=== PATIENT | female | born 1990 | race Caucasian/White ===

== ENCOUNTER 2017-07-03 21:08 | Emergency (ER) | payer OTHER, MEDICAID ==
[~2017-07-03] VITALS: Ht 157.5 cm; Wt 74.8 kg
[~2017-07-03 21:08] MED LIST: AMOXICILLIN500 M1 PO; AUGMENTIN 875875 MG PO; AZO95 MG PO; BACTRIM DS TAB1 EACH PO; BENTYL 20 MG TA20 M1 PO; BENTYL20 MG PO; CARAFATE 1 GM TA1 G1; CARAFATE1 GM/10 ML PO; CIPRO500 MG PO; CIPROFLOXACIN500 M1 PO; DIFLUCAN150 M1 PO; FIORICET 50-321 EACH PO; FLEXERIL PO; FLONASE 0.05%50 MCG NASAL; FLOXIN OTI0.3 %/5 M1 OT; HYDROCODONE-AP1 EAC6 PO; KEFLEX500 MG PO; LIDOCAINE VISC100 M1 SWISH&SPIT; MACROBID 100 M100 M1 PO; NOHOMEMEDICATIONS; OMEPRAZOLE 20 M20 M1 PO; ONDANSETRON HCL4 M2 PO; PHENAZOPYRIDIN200 M2 PO; PRENATAL; PYRIDIUM200 MG PO; SPRINTEC1 EACH PO; TRAMADOL 50 MG50 MG PO; VIBRAMYCIN 100100 MG PO; WELLBUTRIN 100100 MG PO; XANAX 0.25 MG0.25 MG PO; ZOFRAN 4 MG ORAL4 MG PO; ZOFRAN ODT4 MG PO; ZOFRAN ODT4 MG SUBLING; ZOFRAN4 MG; ZPAK PO
[2017-07-03 21:36] LABS: ABSOLUTE BASOPHILS 0.1 thou/uL (0.0-0.2); ABSOLUTE EOSINOPHILS 0.1 thou/uL (0.0-0.7); ABSOLUTE LYMPHOCYTES 3.1 thou/uL (0.8-5.3); ABSOLUTE MONOCYTES 0.6 thou/uL (0.0-1.2); ABSOLUTE NEUTROPHILS 4.3 thou/uL (1.6-8.1); BASOPHILS 0.8 %; HEMATOCRIT 37.1 % (37.0-47.0); HEMOGLOBIN 12.9 gm/dL (12.0-15.0); LYMPHOCYTES 37.8 %; MCH 31.8 pg (26.0-34.0); MCHC 34.7 g/dL (28.0-37.0); MCV 91.7 fL (80.0-100.0); MONOCYTES 7.5 %; MPV 8.9 fl. (7.2-11.1); NUCLEATED RBCS 0 /100WBC; PLATELET COUNT* 216 thou/uL (150-400); POLYS 52.9 %; RBC 4.05 mil/uL (4.20-5.00); WBC 8.2 thou/uL (4.0-11.0)
[2017-07-03 21:48] LABS: ANION GAP 8 mmol/L (7-16); BUN 13 mg/dL (7-18); CALCIUM 8.9 mg/dL (8.5-10.1); CHLORIDE 103 mmol/L (98-107); CO2 29 mmol/L (21-32); CREATININE 0.7 mg/dL (0.6-1.3); GLUCOSE 88 mg/dL (70-99); POTASSIUM 3.9 mmol/L (3.5-5.1); SODIUM 140 mmol/L (136-145)
[2017-07-03 21:55] LABS: ALBUMIN 3.9 g/dL (3.4-5.0); ALKALINE PHOSPHATASE 67 U/L (46-116); LIPASE 157 U/L (73-393); MAGNESIUM 2.1 mg/dL (1.8-2.4); SGOT 18 U/L (15-37); SGPT 24 U/L (30-65); TOTAL BILIRUBIN 0.3 mg/dL (<0.1-1.0); TOTAL PROTEIN 7.2 g/dL (6.4-8.2); TROPONIN-I LEVEL <0.06 ng/mL (<0.06)
[2017-07-03] MEDS ORDERED: IBUPROFEN 800800 M1 PO (22:18)
[2017-07-03] MEDS ORDERED: NORCO 5-325 TA1 EACH PO ×2 (22:18→22:20)
[2017-07-03 22:49] VITALS: BP 122/69
--- NOTE | 2017-07-04 17:42 | EKG ---
[place] [address] ELECTROCARDIOGRAM REPORT Name: SARABJITGRAHAM MERLOSROM SEEMA Room: [facility]#: [id number] Admission: 07/03/17 Attend Phys: Discharge: 07/03/17 Date of : [birth year] Report #: [id number] THIS REPORT FOR: //name// [facility] ED Test Date: 2017-07-03 Test Time: 21:15:42 Pat Name: ROM GALLO Department: Room: Gender: F Electrical Tester: TAYO : 1990 Requested By: Matt Israel Order Number: [id number] MD: Joe Drake Measurements Intervals [place] Rate: 72 P: 52 [place]: 140 QRS: 38 QRSD: 85 T: 20 QT: 397 QTc: 435 Interpretive Statements Sinus rhythm Baseline wander in lead(s) V6 Compared to ECG 01/14/2017 17:13:30 No significant changes Electronically Signed On 07-04-2017 17:42:15 PRODUCTION HONING MACHINE OPERATOR by Joe Drake [email or web address] <ELECTRONICALLY SIGNED> By: Joe Drake MD, [facility] 07/04/17 1742 14 14 Joe Drake MD, FACC /EPI
== END 2017-07-03 22:40 | disposition home or self-care (01) ==
LOC: M.ERS 21:08
PROVIDERS: Emergency Medicine Emergency Medical Services
DX: R09.1 Pleurisy (principal); R07.89 Other chest pain; G43.909 Migraine, unspecified, not intractable, without status migrainosus; F32.9 Major depressive disorder, single episode, unspecified; F17.210 Nicotine dependence, cigarettes, uncomplicated; F10.99 Alcohol use, unspecified with unspecified alcohol-induced disorder; Z88.8 Allergy status to other drugs, medicaments and biological substances

== ENCOUNTER 2017-07-10 18:47 | Emergency (ER) | payer OTHER, MEDICAID ==
[~2017-07-10] VITALS: Ht 157.5 cm; Wt 68.0 kg
[~2017-07-10 18:47] MED LIST changes: +IBUPROFEN 800800 M1 PO; +NORCO 5-325 TA1 EACH PO
[2017-07-10] MEDS ORDERED: PREDNISONE 20 M20 M1 PO (19:47)
[2017-07-10 19:54] VITALS: BP 111/69
--- NOTE | 2017-07-11 16:39 | EKG ---
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: MARYLOU : 1990 Requested By: Mireya Rodriguez Order Number: [id number] Reading MD: Rodrigo Malone Measurements Intervals [place] Rate: 73 P: 35 [place]: 126 QRS: 40 QRSD: 98 T: 17 QT: 383 QTc: 422 Interpretive Statements Sinus rhythm Compared to ECG 07/03/2017 21:15:42 No significant changes Electronically Signed On 07-11-2017 16:39:09 SOILED LINEN DISTRIBUTOR by Rodrigo Malone [email or web address] <ELECTRONICALLY SIGNED> By: Rodrigo Malone MD, [facility] 07/11/17 1639 [id number] Rodrigo Malone MD, FACC /EPI
== END 2017-07-10 19:55 | disposition home or self-care (01) ==
LOC: M.ERS 18:47
DX: R07.89 Other chest pain (principal); R09.1 Pleurisy; G43.909 Migraine, unspecified, not intractable, without status migrainosus; F32.9 Major depressive disorder, single episode, unspecified; F17.210 Nicotine dependence, cigarettes, uncomplicated; Z88.6 Allergy status to analgesic agent

== ENCOUNTER 2017-08-03 18:14 | Emergency (ER) | payer OTHER, MEDICAID ==
[~2017-08-03] VITALS: Ht 157.5 cm; Wt 72.6 kg
[~2017-08-03 18:14] MED LIST changes: +PREDNISONE 20 M20 M1 PO
[2017-08-03 18:42] LABS: URINE BILIRUBIN NEGATIVE (Negative); URINE BLOOD 3+ (Negative); URINE CLARITY CLEAR; URINE COLOR YELLOW; URINE GLUCOSE-RANDOM NEGATIVE (Negative); URINE KETONES NEGATIVE (Negative); URINE LEUKOCYTES-REFLEX NEGATIVE (Negative); URINE NITRITE-REFLEX NEGATIVE (Negative); URINE PROTEIN NEGATIVE (Negative); URINE UROBILINOGEN 0.2 E.U./dl (0.2-1.0)
[2017-08-03 18:54] LABS: BACTERIA-REFLEX None Seen /HPF (None Seen); CASTS None Seen /LPF (None Seen); CRYSTALS None Seen /LPF (None Seen); SQUAMOUS 4-10 Moderate /LPF (0-3); URINE RBC 3-10 Few /HPF (0-2); URINE WBC-REFLEX 0-5 Rare /HPF (0-5)
[2017-08-03] MEDS ORDERED: IBUPROFEN 800800 MG PO (19:37)
[2017-08-03] MEDS ORDERED: NORCO 5-325 TA1 EACH PO (19:37)
[2017-08-03 19:54] VITALS: BP 112/75
== END 2017-08-03 19:55 | disposition home or self-care (01) ==
LOC: M.ERS 18:14
PROVIDERS: Nurse Practitioner Family
DX: R10.2 Pelvic and perineal pain (principal); F32.9 Major depressive disorder, single episode, unspecified; F17.210 Nicotine dependence, cigarettes, uncomplicated; Z88.8 Allergy status to other drugs, medicaments and biological substances

== ENCOUNTER 2017-08-30 20:40 | Emergency (ER) | payer OTHER, MEDICAID ==
[~2017-08-30] VITALS: Ht 157.5 cm; Wt 68.0 kg
[~2017-08-30 20:40] MED LIST changes: +IBUPROFEN 800800 MG PO
[2017-08-30 21:32] LABS: ABSOLUTE BASOPHILS 0.1 thou/uL (0.0-0.2); ABSOLUTE EOSINOPHILS 0.1 thou/uL (0.0-0.7); ABSOLUTE LYMPHOCYTES 2.7 thou/uL (0.8-5.3); ABSOLUTE MONOCYTES 0.7 thou/uL (0.0-1.2); ABSOLUTE NEUTROPHILS 4.2 thou/uL (1.6-8.1); BASOPHILS 1.1 %; HEMATOCRIT 37.5 % (37.0-47.0); MCH 31.5 pg (26.0-34.0); MCHC 34.8 g/dL (28.0-37.0); MCV 90.7 fL (80.0-100.0); MONOCYTES 8.9 %; MPV 8.6 fl. (7.2-11.1); NUCLEATED RBCS 0 /100WBC; PLATELET COUNT* 229 thou/uL (150-400); RBC 4.14 mil/uL (4.20-5.00); WBC 7.7 thou/uL (4.0-11.0)
[2017-08-30 21:44] LABS: ANION GAP 6 mmol/L (7-16); BUN 10 mg/dL (7-18); CALCIUM 8.6 mg/dL (8.5-10.1); CHLORIDE 104 mmol/L (98-107); CO2 30 mmol/L (21-32); CREATININE 0.9 mg/dL (0.6-1.3); GLUCOSE 98 mg/dL (70-99); POTASSIUM 3.8 mmol/L (3.5-5.1); SODIUM 140 mmol/L (136-145)
[2017-08-30 21:46] LABS: PROTIME 9.9 Seconds (9.20-11.50)
[2017-08-30 21:51] LABS: ALBUMIN 3.9 g/dL (3.4-5.0); ALKALINE PHOSPHATASE 57 U/L (46-116); LIPASE 197 U/L (73-393); SGOT 20 U/L (15-37); SGPT 33 U/L (30-65); TOTAL BILIRUBIN 0.3 mg/dL (<0.1-1.0); TOTAL PROTEIN 7.2 g/dL (6.4-8.2); TROPONIN-I LEVEL <0.06 ng/mL (<0.06)
[2017-08-30 21:55] LABS: URINE BILIRUBIN NEGATIVE (Negative); URINE BLOOD TRACE (Negative); URINE CLARITY CLEAR; URINE COLOR STRAW; URINE GLUCOSE-RANDOM NEGATIVE (Negative); URINE KETONES NEGATIVE (Negative); URINE LEUKOCYTES-REFLEX 1+ (Negative); URINE NITRITE-REFLEX NEGATIVE (Negative); URINE PROTEIN NEGATIVE (Negative); URINE SPECIFIC GRAVITY <= 1.005 (1.005-1.030); URINE UROBILINOGEN 0.2 E.U./dl (0.2-1.0)
[2017-08-30 22:08] LABS: MUCUS None Seen strn/LPF (None Seen); SQUAMOUS 4-10 Moderate /LPF (0-3)
[2017-08-30 22:09] LABS: BACTERIA-REFLEX 1-9 Few /HPF (None Seen); CASTS None Seen /LPF (None Seen); CRYSTALS None Seen /LPF (None Seen); URINE RBC 0-2 Rare /HPF (0-2); URINE WBC-REFLEX 6-15 Few /HPF (0-5)
[2017-08-30 22:16] LABS: INFLUENZA A ANTIGEN None Detected (None Detect); INFLUENZA B ANTIGEN None Detected (None Detect)
[2017-08-30 23:35] VITALS: BP 109/73
--- NOTE | 2017-08-31 15:17 | EKG ---
[place] [address] ELECTROCARDIOGRAM REPORT Name: ROM GALLO Room: [facility]#: [id number] Admission: 08/30/17 Attend Phys: Discharge: 08/31/17 Date of : [birth year] Report #: [id number] THIS REPORT FOR: //name// [facility] ED Test Date: 2017-08-30 Test Time: 20:44:56 Pat Name: ROM GALLO Department: Room: Gender: F Lobby Concierge: MARYLOU : 1990 Requested By: Mickey Guillory Order Number: [id number] MD: Davis Pineda Measurements Intervals [place] Rate: 86 P: 64 [place]: 136 QRS: 27 QRSD: 87 T: -5 QT: 363 QTc: 434 Interpretive Statements Sinus rhythm Borderline T abnormalities, anterior leads Compared to ECG 07/10/2017 19:03:46 T-wave abnormality now present Electronically Signed On 08-31-2017 15:17:27 CDT by Davis Pineda [email or web address] <ELECTRONICALLY SIGNED> By: Davis Pineda MD, [facility] 08/31/17 1517 43 43 Davis Pineda MD, FACC /EPI
== END 2017-08-31 00:08 | disposition home or self-care (01) ==
LOC: M.ERS 20:40
PROVIDERS: Emergency Medicine
DX: B34.9 Viral infection, unspecified (principal); G43.909 Migraine, unspecified, not intractable, without status migrainosus; F32.9 Major depressive disorder, single episode, unspecified; F17.210 Nicotine dependence, cigarettes, uncomplicated; Z88.6 Allergy status to analgesic agent

== ENCOUNTER 2017-10-04 03:10 | Emergency (ER) | payer OTHER, MEDICAID ==
[~2017-10-04] VITALS: Ht 157.5 cm; Wt 77.1 kg
[2017-10-04] MEDS ORDERED: CARAFATE 1 GM TA1 GM PO (04:31)
[2017-10-04 04:46] VITALS: BP 112/69
--- NOTE | 2017-10-04 16:08 | EKG ---
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
== END 2017-10-04 04:46 | disposition home or self-care (01) ==
LOC: M.ERS 03:10
DX: R10.13 Epigastric pain (principal); F32.9 Major depressive disorder, single episode, unspecified; G43.909 Migraine, unspecified, not intractable, without status migrainosus; F17.210 Nicotine dependence, cigarettes, uncomplicated

== ENCOUNTER 2017-10-10 00:14 | Emergency (ER) | payer OTHER, MEDICAID ==
[~2017-10-10] VITALS: Ht 157.5 cm; Wt 77.1 kg
[~2017-10-10 00:14] MED LIST changes: +CARAFATE 1 GM TA1 GM PO
[2017-10-10] MEDS ORDERED: NOHOMEMEDICATIONS (00:22)
[2017-10-10 01:09] LABS: ABSOLUTE BASOPHILS 0.1 thou/uL (0.0-0.2); ABSOLUTE EOSINOPHILS 0.1 thou/uL (0.0-0.7); ABSOLUTE LYMPHOCYTES 2.7 thou/uL (0.8-5.3); ABSOLUTE MONOCYTES 0.7 thou/uL (0.0-1.2); ABSOLUTE NEUTROPHILS 5.8 thou/uL (1.6-8.1); BASOPHILS 0.7 %; HEMATOCRIT 34.7 % (37.0-47.0); HEMOGLOBIN 12.1 gm/dL (12.0-15.0); LYMPHOCYTES 28.9 %; MCH 31.7 pg (26.0-34.0); MCHC 34.9 g/dL (28.0-37.0); MCV 90.8 fL (80.0-100.0); MONOCYTES 7.1 %; MPV 9.3 fl. (7.2-11.1); NUCLEATED RBCS 0 /100WBC; PLATELET COUNT* 201 thou/uL (150-400); POLYS 62.3 %; RBC 3.82 mil/uL (4.20-5.00); RDW-CV 12.6 % (10.5-14.5); WBC 9.4 thou/uL (4.0-11.0)
[2017-10-10 01:11] LABS: URINE BILIRUBIN NEGATIVE (Negative); URINE BLOOD NEGATIVE (Negative); URINE CLARITY CLEAR; URINE COLOR YELLOW; URINE GLUCOSE-RANDOM NEGATIVE (Negative); URINE KETONES NEGATIVE (Negative); URINE LEUKOCYTES-REFLEX 1+ (Negative); URINE NITRITE-REFLEX NEGATIVE (Negative); URINE PROTEIN NEGATIVE (Negative); URINE UROBILINOGEN 0.2 E.U./dl (0.2-1.0)
[2017-10-10] MEDS ORDERED: ULTRAM 50MG TAB50 MG PO (01:29)
[2017-10-10] MEDS ORDERED: BACTRIM DS TAB1 EACH PO (01:29)
[2017-10-10] MEDS ORDERED: NAPROSYN500 MG PO (01:29)
[2017-10-10 01:34] VITALS: BP 109/76
[2017-10-10 01:52] LABS: CASTS None Seen /LPF (None Seen); SQUAMOUS >10 Many /LPF (0-3)
[2017-10-10 01:53] LABS: BACTERIA-REFLEX >30 Many /HPF (None Seen); CRYSTALS None Seen /LPF (None Seen); URINE RBC 0-2 Rare /HPF (0-2)
== END 2017-10-10 01:35 | disposition home or self-care (01) ==
LOC: M.ERS 00:14
PROVIDERS: Personal Emergency Response Attendant
DX: N39.0 Urinary tract infection, site not specified (principal); G43.909 Migraine, unspecified, not intractable, without status migrainosus; F32.9 Major depressive disorder, single episode, unspecified; F17.210 Nicotine dependence, cigarettes, uncomplicated; Z88.6 Allergy status to analgesic agent

== ENCOUNTER 2017-10-17 18:01 | Emergency (ER) | payer OTHER, MEDICAID ==
[~2017-10-17] VITALS: Ht 157.5 cm; Wt 77.1 kg
[~2017-10-17 18:01] MED LIST changes: +NAPROSYN500 MG PO; +ULTRAM 50MG TAB50 MG PO
[2017-10-17] MEDS ORDERED: ZOLOFT50 MG PO (18:14)
[2017-10-17] MEDS ORDERED: XANAX 0.25 MG0.25 MG PO (18:15)
[2017-10-17] MEDS ORDERED: GABAPENTIN 100100 MG PO (18:15)
[2017-10-17 18:28] LABS: URINE BILIRUBIN NEGATIVE (Negative); URINE BLOOD 2+ (Negative); URINE CLARITY CLEAR; URINE COLOR YELLOW; URINE GLUCOSE-RANDOM NEGATIVE (Negative); URINE KETONES NEGATIVE (Negative); URINE LEUKOCYTES-REFLEX TRACE (Negative); URINE NITRITE-REFLEX NEGATIVE (Negative); URINE PROTEIN NEGATIVE (Negative); URINE UROBILINOGEN 0.2 E.U./dl (0.2-1.0)
[2017-10-17 18:34] LABS: ABSOLUTE BASOPHILS 0.1 thou/uL (0.0-0.2); ABSOLUTE EOSINOPHILS 0.1 thou/uL (0.0-0.7); ABSOLUTE LYMPHOCYTES 2.4 thou/uL (0.8-5.3); ABSOLUTE MONOCYTES 0.6 thou/uL (0.0-1.2); ABSOLUTE NEUTROPHILS 4.7 thou/uL (1.6-8.1); BASOPHILS 0.6 %; EOSINOPHILS 0.8 %; HEMATOCRIT 39.4 % (37.0-47.0); HEMOGLOBIN 13.5 gm/dL (12.0-15.0); LYMPHOCYTES 30.5 %; MCH 31.2 pg (26.0-34.0); MCHC 34.2 g/dL (28.0-37.0); MCV 91.2 fL (80.0-100.0); MONOCYTES 7.8 %; NUCLEATED RBCS 0 /100WBC; PLATELET COUNT* 230 thou/uL (150-400); POLYS 60.3 %; RBC 4.32 mil/uL (4.20-5.00); RDW-CV 12.6 % (10.5-14.5); WBC 7.8 thou/uL (4.0-11.0)
[2017-10-17 18:37] LABS: MUCUS 4-6 Moderate strn/LPF (None Seen); SQUAMOUS >10 Many /LPF (0-3)
[2017-10-17 18:38] LABS: CALCIUM 9.1 mg/dL (8.5-10.1); CREATININE 0.9 mg/dL (0.6-1.3); POTASSIUM 3.8 mmol/L (3.5-5.1)
[2017-10-17 18:39] LABS: AMORPHOUS URATES Moderate /LPF (None Seen); BACTERIA-REFLEX 1-9 Few /HPF (None Seen); CASTS None Seen /LPF (None Seen); URINE RBC 0-2 Rare /HPF (0-2); URINE WBC-REFLEX 0-5 Rare /HPF (0-5)
[2017-10-17 18:40] LABS: URIC ACID CRYSTALS 0-3 Few /LPF (None Seen)
[2017-10-17 18:43] LABS: ALBUMIN 4.2 g/dL (3.4-5.0); TOTAL BILIRUBIN 0.5 mg/dL (<0.1-1.0); TOTAL PROTEIN 7.8 g/dL (6.4-8.2)
[2017-10-17 21:32] VITALS: BP 134/70
== END 2017-10-17 21:33 | disposition home or self-care (01) ==
LOC: M.ERS 18:01
PROVIDERS: Physician Assistant Surgical
DX: R51 Headache (principal); R20.2 Paresthesia of skin; F32.9 Major depressive disorder, single episode, unspecified; F17.210 Nicotine dependence, cigarettes, uncomplicated; Z88.6 Allergy status to analgesic agent; Z88.2 Allergy status to sulfonamides

== ENCOUNTER 2017-10-22 23:01 | Emergency (ER) | payer OTHER, MEDICAID ==
[~2017-10-22] VITALS: Ht 157.5 cm; Wt 77.1 kg
[~2017-10-22 23:01] MED LIST changes: +GABAPENTIN 100100 MG PO; +ZOLOFT50 MG PO
[2017-10-22] MEDS ORDERED: MOTION RELIEF25 MG PO (23:36)
[2017-10-22 23:41] VITALS: BP 116/78
== END 2017-10-22 23:43 | disposition home or self-care (01) ==
LOC: M.ERS 23:01
DX: R42 Dizziness and giddiness (principal); H65.91 Unspecified nonsuppurative otitis media, right ear; G43.909 Migraine, unspecified, not intractable, without status migrainosus; F32.9 Major depressive disorder, single episode, unspecified; F17.210 Nicotine dependence, cigarettes, uncomplicated; Z88.6 Allergy status to analgesic agent; Z88.2 Allergy status to sulfonamides

== ENCOUNTER 2017-11-07 00:20 | Emergency (ER) | payer OTHER, MEDICAID ==
[~2017-11-07] VITALS: Ht 157.5 cm; Wt 77.1 kg
[~2017-11-07 00:20] MED LIST changes: +MOTION RELIEF25 MG PO
[2017-11-07 00:55] VITALS: BP 133/76
== END 2017-11-07 00:55 | disposition home or self-care (01) ==
LOC: M.ERS 00:20
DX: F41.0 Panic disorder [episodic paroxysmal anxiety] (principal); T43.225A Adverse effect of selective serotonin reuptake inhibitors, initial encounter; G43.909 Migraine, unspecified, not intractable, without status migrainosus; F32.9 Major depressive disorder, single episode, unspecified; F17.210 Nicotine dependence, cigarettes, uncomplicated; Z88.8 Allergy status to other drugs, medicaments and biological substances; Z88.6 Allergy status to analgesic agent; Z88.2 Allergy status to sulfonamides; Y92.89 Other specified places as the place of occurrence of the external cause

== ENCOUNTER 2017-12-23 00:54 | Emergency (ER) | payer OTHER, MEDICAID ==
[~2017-12-23] VITALS: Ht 157.5 cm; Wt 77.1 kg
[2017-12-23] MEDS ORDERED: LEXAPRO 10 MG T10 M1 PO (01:02)
[2017-12-23 02:11] LABS: MPV 9.3 fl. (7.2-11.1)
[2017-12-23 02:13] LABS: ABSOLUTE EOSINOPHILS 0.1 thou/uL (0.0-0.7); ABSOLUTE MONOCYTES 0.7 thou/uL (0.0-1.2); CALCIUM 8.9 mg/dL (8.5-10.1); CREATININE 0.9 mg/dL (0.6-1.3); MCV 91.1 fL (80.0-100.0); POTASSIUM 3.5 mmol/L (3.5-5.1); WBC 7.8 thou/uL (4.0-11.0)
[2017-12-23 02:18] LABS: ABSOLUTE LYMPHOCYTES 2.9 thou/uL (0.8-5.3); ALBUMIN 3.7 g/dL (3.4-5.0); BASOPHILS 0.4 %; EOSINOPHILS 1.5 %; HEMATOCRIT 37.3 % (37.0-47.0); LYMPHOCYTES 37.1 %; MCH 31.8 pg (26.0-34.0); MCHC 34.9 g/dL (28.0-37.0); MONOCYTES 9.5 %; NUCLEATED RBCS 0 /100WBC; PLATELET COUNT* 199 thou/uL (150-400); POLYS 51.5 %; RBC 4.09 mil/uL (4.20-5.00); RDW-CV 12.9 % (10.5-14.5); TOTAL BILIRUBIN 0.5 mg/dL (<0.1-1.0)
[2017-12-23 02:50] LABS: URINE BILIRUBIN NEGATIVE (Negative); URINE BLOOD NEGATIVE (Negative); URINE CLARITY CLEAR; URINE COLOR YELLOW; URINE GLUCOSE-RANDOM NEGATIVE (Negative); URINE KETONES NEGATIVE (Negative); URINE LEUKOCYTES-REFLEX NEGATIVE (Negative); URINE NITRITE-REFLEX NEGATIVE (Negative); URINE PROTEIN NEGATIVE (Negative); URINE UROBILINOGEN 0.2 E.U./dl (0.2-1.0)
[2017-12-23 02:58] LABS: AMP/METHAMP Negative (Negative); BARBITURATES Negative (Negative); BENZODIAZEPINES Negative (Negative); COCAINE Negative (Negative); METHADONE Negative (Negative); OPIATES Negative (Negative); PCP Negative (Negative); THC Negative (Negative)
[2017-12-23 03:14] VITALS: BP 125/63
--- NOTE | 2017-12-23 11:35 | EKG ---
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: DONATO : 1990 Requested By: Zeinab Bueno Order Number: [id number] MD: Rodrigo Malone Measurements Intervals [place] Rate: 82 P: 53 [place]: 134 QRS: 37 QRSD: 89 T: 7 QT: 376 QTc: 439 Interpretive Statements Sinus rhythm Borderline T abnormalities, anterior leads Compared to ECG 10/04/2017 03:18:44 No significant changes Electronically Signed On 12-23-2017 11:35:24 CDT by Rodrigo Malone [email or web address] <ELECTRONICALLY SIGNED> By: Rodrigo Malone MD, [facility] 12/23/17 1135 0100 0100 Rodrigo Malone MD, FACC /EPI
== END 2017-12-23 03:14 | disposition home or self-care (01) ==
LOC: M.ERS 00:54
PROVIDERS: Personal Emergency Response Attendant
DX: R07.89 Other chest pain (principal); G43.909 Migraine, unspecified, not intractable, without status migrainosus; F41.9 Anxiety disorder, unspecified; F32.9 Major depressive disorder, single episode, unspecified; F17.210 Nicotine dependence, cigarettes, uncomplicated; Z88.2 Allergy status to sulfonamides; Z88.8 Allergy status to other drugs, medicaments and biological substances

== ENCOUNTER 2018-01-10 20:52 | Emergency (ER) | payer OTHER, MEDICAID ==
[~2018-01-10] VITALS: Ht 157.5 cm; Wt 77.1 kg
[~2018-01-10 20:52] MED LIST changes: +LEXAPRO 10 MG T10 M1 PO
[2018-01-10 21:44] LABS: URINE BILIRUBIN NEGATIVE (Negative); URINE BLOOD NEGATIVE (Negative); URINE CLARITY CLEAR; URINE COLOR YELLOW; URINE GLUCOSE-RANDOM NEGATIVE (Negative); URINE KETONES NEGATIVE (Negative); URINE LEUKOCYTES-REFLEX NEGATIVE (Negative); URINE NITRITE-REFLEX NEGATIVE (Negative); URINE PROTEIN NEGATIVE (Negative); URINE UROBILINOGEN 0.2 E.U./dl (0.2-1.0)
[2018-01-10 22:13] VITALS: BP 112/63
== END 2018-01-10 22:15 | disposition home or self-care (01) ==
LOC: M.ERS 20:52
PROVIDERS: Family Medicine
DX: R51 Headache (principal); F32.9 Major depressive disorder, single episode, unspecified; F17.210 Nicotine dependence, cigarettes, uncomplicated; F41.9 Anxiety disorder, unspecified; Z88.8 Allergy status to other drugs, medicaments and biological substances; Z88.2 Allergy status to sulfonamides; Z88.6 Allergy status to analgesic agent

== ENCOUNTER 2018-03-29 20:18 | Emergency (ER) | payer OTHER, MEDICAID ==
[~2018-03-29] VITALS: Ht 157.5 cm; Wt 74.8 kg
[2018-03-29] MEDS ORDERED: CEPHALEXIN500 MG PO (20:23)
[2018-03-29 21:53] VITALS: BP 113/59
== END 2018-03-29 21:53 | disposition home or self-care (01) ==
LOC: M.ERS 20:18
DX: M79.604 Pain in right leg (principal); G43.909 Migraine, unspecified, not intractable, without status migrainosus; F41.9 Anxiety disorder, unspecified; F32.9 Major depressive disorder, single episode, unspecified; F17.210 Nicotine dependence, cigarettes, uncomplicated; Z88.2 Allergy status to sulfonamides; Z88.6 Allergy status to analgesic agent; Z88.8 Allergy status to other drugs, medicaments and biological substances

== ENCOUNTER 2018-06-20 16:32 | Emergency (ER) | payer OTHER, MEDICAID ==
[~2018-06-20] VITALS: Ht 157.5 cm; Wt 77.1 kg
[~2018-06-20 16:32] MED LIST changes: +CEPHALEXIN500 MG PO
[2018-06-20 17:29] LABS: ABSOLUTE BASOPHILS 0.1 thou/uL (0.0-0.2); ABSOLUTE EOSINOPHILS 0.1 thou/uL (0.0-0.7); ABSOLUTE LYMPHOCYTES 2.7 thou/uL (0.8-5.3); ABSOLUTE MONOCYTES 0.5 thou/uL (0.0-1.2); ABSOLUTE NEUTROPHILS 4.6 thou/uL (1.6-8.1); BASOPHILS 0.8 %; EOSINOPHILS 0.9 %; HEMOGLOBIN 13.4 gm/dL (12.0-15.0); MCH 31.4 pg (26.0-34.0); MCHC 34.4 g/dL (28.0-37.0); MCV 91.1 fL (80.0-100.0); MONOCYTES 5.9 %; MPV 9.6 fl. (7.2-11.1); NUCLEATED RBCS 0 /100WBC; PLATELET COUNT* 268 thou/uL (150-400); POLYS 58.4 %; RBC 4.28 mil/uL (4.20-5.00); RDW-CV 12.5 % (10.5-14.5); WBC 7.9 thou/uL (4.0-11.0)
[2018-06-20 17:32] LABS: URINE BILIRUBIN NEGATIVE (Negative); URINE BLOOD NEGATIVE (Negative); URINE CLARITY CLEAR; URINE COLOR YELLOW; URINE GLUCOSE-RANDOM NEGATIVE (Negative); URINE KETONES NEGATIVE (Negative); URINE LEUKOCYTES-REFLEX NEGATIVE (Negative); URINE NITRITE-REFLEX NEGATIVE (Negative); URINE PROTEIN NEGATIVE (Negative); URINE SPECIFIC GRAVITY 1.015 (1.005-1.030); URINE UROBILINOGEN 0.2 E.U./dl (0.2-1.0)
[2018-06-20 17:38] LABS: CALCIUM 8.9 mg/dL (8.5-10.1); CREATININE 0.8 mg/dL (0.6-1.3); POTASSIUM 3.8 mmol/L (3.5-5.1)
[2018-06-20 17:43] LABS: ALBUMIN 4.3 g/dL (3.4-5.0); TOTAL BILIRUBIN 0.7 mg/dL (<0.1-1.0); TOTAL PROTEIN 7.8 g/dL (6.4-8.2)
[2018-06-20] MEDS ORDERED: ONDANSETRON HCL4 M2 PO (18:38)
[2018-06-20] MEDS ORDERED: NABUMETONE 750750 M1 PO (18:39)
[2018-06-20 18:50] VITALS: BP 112/72
== END 2018-06-20 18:51 | disposition home or self-care (01) ==
LOC: M.ERS 16:32
PROVIDERS: Nurse Practitioner Family
DX: R10.31 Right lower quadrant pain (principal); G43.909 Migraine, unspecified, not intractable, without status migrainosus; F41.9 Anxiety disorder, unspecified; F32.9 Major depressive disorder, single episode, unspecified; F17.210 Nicotine dependence, cigarettes, uncomplicated; Z88.6 Allergy status to analgesic agent; Z88.2 Allergy status to sulfonamides; Z88.8 Allergy status to other drugs, medicaments and biological substances

== ENCOUNTER 2019-05-10 17:26 | Emergency (ER) | payer OTHER ==
[~2019-05-10] VITALS: Ht 157.5 cm; Wt 81.7 kg
[~2019-05-10 17:26] MED LIST changes: +NABUMETONE 750750 M1 PO
[2019-05-10 18:03] LABS: URINE BILIRUBIN NEGATIVE (Negative); URINE BLOOD NEGATIVE (Negative); URINE CLARITY CLEAR; URINE COLOR YELLOW; URINE GLUCOSE-RANDOM NEGATIVE (Negative); URINE KETONES NEGATIVE (Negative); URINE LEUKOCYTES-REFLEX 1+ (Negative); URINE NITRITE-REFLEX NEGATIVE (Negative); URINE PROTEIN NEGATIVE (Negative)
[2019-05-10 18:13] LABS: SQUAMOUS >10 Many /LPF (0-3)
[2019-05-10 18:14] LABS: BACTERIA-REFLEX >30 Many /HPF (None Seen); CASTS None Seen /LPF (None Seen); CRYSTALS None Seen /LPF (None Seen); URINE RBC 0-2 Rare /HPF (0-2); URINE WBC-REFLEX 6-15 Few /HPF (0-5)
[2019-05-10 18:47] LABS: ABSOLUTE BASOPHILS 0.1 thou/uL (0.0-0.2); ABSOLUTE EOSINOPHILS 0.1 thou/uL (0.0-0.7); BASOPHILS 0.7 %; EOSINOPHILS 1.2 %; HEMATOCRIT 38.7 % (37.0-47.0); HEMOGLOBIN 13.4 gm/dL (12.0-15.0); LYMPHOCYTES 35.4 %; MCH 31.4 pg (26.0-34.0); MCHC 34.5 g/dL (28.0-37.0); MCV 90.9 fL (80.0-100.0); MONOCYTES 8.1 %; MPV 8.9 fl. (7.2-11.1); NUCLEATED RBCS 0 /100WBC; PLATELET COUNT* 243 thou/uL (150-400); POLYS 54.6 %; RBC 4.26 mil/uL (4.20-5.00); RDW-CV 12.7 % (10.5-14.5)
[2019-05-10 18:54] LABS: CALCIUM 9.3 mg/dL (8.5-10.1); POTASSIUM 3.7 mmol/L (3.5-5.1)
[2019-05-10 18:56] LABS: ABSOLUTE LYMPHOCYTES 3.2 thou/uL (0.8-5.3); ABSOLUTE MONOCYTES 0.7 thou/uL (0.0-1.2); ABSOLUTE NEUTROPHILS 4.9 thou/uL (1.6-8.1)
[2019-05-10 18:59] LABS: ALBUMIN 4.2 g/dL (3.4-5.0); TOTAL BILIRUBIN 0.3 mg/dL (<0.1-1.0)
[2019-05-10] MEDS ORDERED: MACROBID 100 M100 M2 PO (20:57)
[2019-05-10] MEDS ORDERED: ONDANSETRON HCL4 M2 PO (20:57)
[2019-05-10 21:07] VITALS: BP 129/86
== END 2019-05-10 21:08 | disposition home or self-care (01) ==
LOC: M.ERS 17:26
PROVIDERS: Emergency Medicine Emergency Medical Services; Nurse Practitioner Family
DX: N39.0 Urinary tract infection, site not specified (principal); Z32.02 Encounter for pregnancy test, result negative; N89.8 Other specified noninflammatory disorders of vagina; R11.0 Nausea; F32.9 Major depressive disorder, single episode, unspecified; F41.9 Anxiety disorder, unspecified; G43.909 Migraine, unspecified, not intractable, without status migrainosus; F17.210 Nicotine dependence, cigarettes, uncomplicated; Z88.2 Allergy status to sulfonamides; Z88.1 Allergy status to other antibiotic agents; Z88.6 Allergy status to analgesic agent; Z88.8 Allergy status to other drugs, medicaments and biological substances

== ENCOUNTER 2019-06-12 19:21 | Emergency (ER) | payer OTHER ==
[~2019-06-12] VITALS: Ht 157.5 cm; Wt 81.7 kg
[~2019-06-12 19:21] MED LIST changes: +MACROBID 100 M100 M2 PO
[2019-06-12 22:35] VITALS: BP 124/88
== END 2019-06-12 22:37 | disposition home or self-care (01) ==
LOC: M.ERS 19:21
DX: R25.2 Cramp and spasm (principal); M79.662 Pain in left lower leg; F41.9 Anxiety disorder, unspecified; F32.9 Major depressive disorder, single episode, unspecified; G43.909 Migraine, unspecified, not intractable, without status migrainosus; F17.210 Nicotine dependence, cigarettes, uncomplicated; Z88.1 Allergy status to other antibiotic agents; Z88.2 Allergy status to sulfonamides; Z88.6 Allergy status to analgesic agent; Z88.8 Allergy status to other drugs, medicaments and biological substances

== ENCOUNTER 2019-12-22 23:47 | Emergency (ER) | payer OTHER ==
[~2019-12-22] VITALS: Ht 160 cm; Wt 81.7 kg
[2019-12-22] MEDS ORDERED: MACROBID 100 M100 MG PO (23:59)
[2019-12-22] MEDS ORDERED: PYRIDIUM200 M2 PO (23:59)
[2019-12-23 00:54] LABS: URINE BILIRUBIN NEGATIVE (Negative); URINE BLOOD 3+ (Negative); URINE CLARITY CLEAR; URINE COLOR DARK YELLOW; URINE GLUCOSE-RANDOM NEGATIVE (Negative); URINE KETONES NEGATIVE (Negative); URINE LEUKOCYTES-REFLEX NEGATIVE (Negative); URINE PROTEIN TRACE (Negative); URINE SPECIFIC GRAVITY 1.015 (1.005-1.030)
[2019-12-23 00:55] LABS: URINE NITRITE-REFLEX POSITIVE (Negative)
[2019-12-23 01:06] LABS: HEMATOCRIT 38.5 % (37.0-47.0); HEMOGLOBIN 13.5 gm/dL (12.0-15.0); MCH 32.1 pg (26.0-34.0); MCV 91.7 fL (80.0-100.0); MPV 9.1 fl. (7.2-11.1); RBC 4.2 mil/uL (4.20-5.00); RDW-CV 12.7 % (10.5-14.5); WBC 9.2 thou/uL (4.0-11.0)
[2019-12-23 01:25] LABS: CASTS None Seen /LPF (None Seen); SQUAMOUS 4-10 Moderate /LPF (0-3)
[2019-12-23 01:26] LABS: CRYSTALS None Seen /LPF (None Seen); URINE RBC >20 Many /HPF (0-2); URINE WBC-REFLEX 0-5 Rare /HPF (0-5)
[2019-12-23] MEDS ORDERED: LEVAQUIN 500 M500 MG PO (02:22)
[2019-12-23 02:30] VITALS: BP 118/72
== END 2019-12-23 02:30 | disposition home or self-care (01) ==
LOC: M.ERS 23:47
PROVIDERS: Personal Emergency Response Attendant
DX: N39.0 Urinary tract infection, site not specified (principal); G43.909 Migraine, unspecified, not intractable, without status migrainosus; F32.9 Major depressive disorder, single episode, unspecified; F41.9 Anxiety disorder, unspecified; F17.210 Nicotine dependence, cigarettes, uncomplicated; Z88.1 Allergy status to other antibiotic agents; Z88.2 Allergy status to sulfonamides; Z88.6 Allergy status to analgesic agent; Z88.8 Allergy status to other drugs, medicaments and biological substances

== ENCOUNTER 2020-01-27 15:42 | Emergency (ER) | payer OTHER ==
[~2020-01-27] VITALS: Ht 157.5 cm; Wt 77.1 kg
[~2020-01-27 15:42] MED LIST changes: +LEVAQUIN 500 M500 MG PO; +MACROBID 100 M100 MG PO; +PYRIDIUM200 M2 PO
[2020-01-27 16:06] LABS: URINE BILIRUBIN NEGATIVE (Negative); URINE BLOOD NEGATIVE (Negative); URINE CLARITY CLEAR; URINE COLOR YELLOW; URINE GLUCOSE-RANDOM NEGATIVE (Negative); URINE KETONES NEGATIVE (Negative); URINE LEUKOCYTES-REFLEX TRACE (Negative); URINE NITRITE-REFLEX NEGATIVE (Negative); URINE PROTEIN NEGATIVE (Negative); URINE UROBILINOGEN 0.2 E.U./dl (0.2-1.0)
[2020-01-27 16:14] LABS: BACTERIA-REFLEX >30 Many /HPF (None Seen); CRYSTALS None Seen /LPF (None Seen); MUCUS None Seen strn/LPF (None Seen); SQUAMOUS >10 Many /LPF (0-3)
[2020-01-27 16:15] LABS: CASTS None Seen /LPF (None Seen); URINE RBC None Seen /HPF (0-2); URINE WBC-REFLEX 0-5 Rare /HPF (0-5)
[2020-01-27 16:44] LABS: ABSOLUTE BASOPHILS 0.1 thou/uL (0.0-0.2); ABSOLUTE EOSINOPHILS 0.1 thou/uL (0.0-0.7); ABSOLUTE LYMPHOCYTES 2.2 thou/uL (0.8-5.3); ABSOLUTE MONOCYTES 0.6 thou/uL (0.0-1.2); ABSOLUTE NEUTROPHILS 4.9 thou/uL (1.6-8.1); BASOPHILS 0.7 %; EOSINOPHILS 1.1 %; HEMATOCRIT 37.9 % (37.0-47.0); HEMOGLOBIN 13.2 gm/dL (12.0-15.0); MCH 32.2 pg (26.0-34.0); MCHC 34.9 g/dL (28.0-37.0); MCV 92.1 fL (80.0-100.0); MONOCYTES 7.9 %; NUCLEATED RBCS 0 /100WBC; PLATELET COUNT* 226 thou/uL (150-400); POLYS 62.3 %; RBC 4.12 mil/uL (4.20-5.00); RDW-CV 12.9 % (10.5-14.5); WBC 7.8 thou/uL (4.0-11.0)
[2020-01-27 16:54] LABS: CALCIUM 8.4 mg/dL (8.5-10.1); POTASSIUM 4.2 mmol/L (3.5-5.1)
[2020-01-27 16:58] LABS: ALBUMIN 3.9 g/dL (3.4-5.0); TOTAL BILIRUBIN 0.4 mg/dL (<0.1-1.0); TOTAL PROTEIN 7.1 g/dL (6.4-8.2)
[2020-01-27] MEDS ORDERED: KEFLEX500 M1 PO (18:15)
[2020-01-27 18:32] VITALS: BP 110/76
== END 2020-01-27 18:33 | disposition home or self-care (01) ==
LOC: M.ERS 15:42
PROVIDERS: Nurse Practitioner Family
DX: O23.41 Unspecified infection of urinary tract in pregnancy, first trimester (principal); O99.331 Smoking (tobacco) complicating pregnancy, first trimester; O99.341 Other mental disorders complicating pregnancy, first trimester; O99.351 Diseases of the nervous system complicating pregnancy, first trimester; Z88.6 Allergy status to analgesic agent; Z88.1 Allergy status to other antibiotic agents; Z88.2 Allergy status to sulfonamides; Z88.8 Allergy status to other drugs, medicaments and biological substances; Z3A.01 Less than 8 weeks gestation of pregnancy

== ENCOUNTER 2020-05-02 19:21 | Emergency (ER) | payer OTHER ==
[~2020-05-02] VITALS: Ht 157.5 cm; Wt 84.4 kg
[~2020-05-02 19:21] MED LIST changes: +KEFLEX500 M1 PO
[2020-05-02] MEDS ORDERED: ONDANSETRON HCL4 M2 PO (19:31)
[2020-05-02 20:16] LABS: URINE BILIRUBIN NEGATIVE (Negative); URINE BLOOD 1+ (Negative); URINE CLARITY CLEAR; URINE COLOR YELLOW; URINE GLUCOSE-RANDOM NEGATIVE (Negative); URINE KETONES NEGATIVE (Negative); URINE LEUKOCYTES-REFLEX 1+ (Negative); URINE NITRITE-REFLEX NEGATIVE (Negative); URINE PROTEIN NEGATIVE (Negative); URINE UROBILINOGEN 0.2 E.U./dl (0.2-1.0)
[2020-05-02 20:29] LABS: MUCUS None Seen strn/LPF (None Seen); SQUAMOUS >10 Many /LPF (0-3); URINE WBC-REFLEX 0-5 Rare /HPF (0-5)
[2020-05-02 20:30] LABS: AMORPHOUS URATES Few /LPF (None Seen); CASTS None Seen /LPF (None Seen); URINE RBC 3-10 Few /HPF (0-2)
[2020-05-02] MEDS ORDERED: KEFLEX500 M1 PO (20:34)
[2020-05-02 21:17] VITALS: BP 117/74
== END 2020-05-02 21:17 | disposition home or self-care (01) ==
LOC: M.ERS 19:21
PROVIDERS: Personal Emergency Response Attendant
DX: O23.42 Unspecified infection of urinary tract in pregnancy, second trimester (principal); O99.352 Diseases of the nervous system complicating pregnancy, second trimester; G43.909 Migraine, unspecified, not intractable, without status migrainosus; O99.342 Other mental disorders complicating pregnancy, second trimester; F32.9 Major depressive disorder, single episode, unspecified; F41.9 Anxiety disorder, unspecified; O99.332 Smoking (tobacco) complicating pregnancy, second trimester; F17.210 Nicotine dependence, cigarettes, uncomplicated; Z79.899 Other long term (current) drug therapy; Z3A.19 19 weeks gestation of pregnancy; Z88.8 Allergy status to other drugs, medicaments and biological substances; Z88.6 Allergy status to analgesic agent; Z88.2 Allergy status to sulfonamides